=== PATIENT | female | born 1985 | race Caucasian/White ===

== ENCOUNTER 2017-12-20 20:15 | Emergency (ER) | payer OTHER ==
[2017-12-20 20:21] VITALS: BP 125/67; PULSE 79; TEMP 98; BMI 24.7
--- NOTE | 2017-12-20 20:22 | PDOC ---
Rapid Medical Evaluation Chief Complaint: Injury Time Seen by Provider: 12/20/17 20:18 Medical Evaluation: 12/20/17 20:19 c/o left foot injury fell down stairs prior to arrival PE: patient alert ox3 able to weight bear without difficulty A: left foot pain P: xray, urine patient to the ER for further management of care. 12/20/17 20:21 Discharge Disposition - Diagnosis Foot pain, left - Referrals - Patient Instructions - Post Discharge Activity
--- NOTE | 2017-12-20 20:50 | PDOC ---
History of Present Illness - General Chief Complaint: Pain Stated Complaint: LEFT FOOT PAIN Time Seen by Provider: 12/20/17 20:18 - History of Present Illness Initial Comments: 32-year-old female without comorbidities presents for evaluation of left foot pain. She states prior to arrival [place] [employer] and injured her left foot. She describes an inversion type injury. 12/20/17 20:49 Past History - Past Medical History Allergies/Adverse Reactions: Allergies Allergy/AdvReac Type Severity Reaction Status Date / Time No Known Allergies Allergy Verified 12/20/17 20:21 Home Medications: Ambulatory Orders NK [No Known Home Medication] 12/20/17 - Suicide/Smoking/Psychosocial Hx Smoking History: Never smoked Have you smoked in the past 12 months: No Information on smoking cessation initiated: No Hx Alcohol Use: No Drug/Substance Use Hx: No Review of Systems - Review of Systems Musculoskeletal: Yes: See HPI, Joint Pain All Other Systems: Reviewed and Negative *Physical Exam - Vital Signs Last Vital Signs Temp Pulse Resp BP Pulse Ox 98.0 F 79 16 125/67 100 12/20/17 20:19 12/20/17 20:19 12/20/17 20:19 12/20/17 20:19 12/20/17 20:19 - Physical Exam Comments: Left foot skin color and temperature are normal, there is no swelling, there is full range of motion of the ankle. There is no tenderness about the proximal fibula or along its distal course. There is no tenderness about the medial or lateral malleolus. No tenderness about the navicular. There is mild discomfort at the base of the fifth metatarsal and across the tarsal metatarsal joints. There are no gross sensorimotor deficits. She is neurovascularly intact. 12/20/17 20:50 Medical Decision Making - Medical Decision Making X-ray show no evidence of fracture trauma destructive process this is a left foot sprain weight-bear as tolerated with use of crutches follow-up with orthopedic surgery for further evaluation and treatment options. 12/20/17 21:13 *DC/Admit/Observation/Transfer Diagnosis at time of Disposition: Foot pain, left, Foot sprain - Discharge Dispostion Disposition: HOME Condition at time of disposition: Stable Decision to Admit order: No - Referrals Referrals: Jonah Salcido MD [Staff Physician] - - Patient Instructions Printed Discharge Instructions: DI for Foot Sprain Additional Instructions: He may weight-bear as tolerated with use of crutches and follow-up with orthopedic surgery in 2-3 days for further evaluation and treatment options. Return to the emergency room should symptoms worsen or go unresolved. May take Tylenol Motrin for pain as directed. - Post Discharge Activity
== END 2017-12-20 21:22 | disposition home or self-care (01) ==
LOC: JERFT 20:15
DX: S93.692A Other sprain of left foot, initial encounter (principal); W10.8XXA Fall (on) (from) other stairs and steps, initial encounter; Y93.89 Activity, other specified; Y92.522 Railway station as the place of occurrence of the external cause; Y99.8 Other external cause status
CPT/HCPCS: 73630-TC-LT; 84703; 99281-25